=== PATIENT | male | born 2000 | race African-American/Black ===

== ENCOUNTER 2019-11-02 16:57 | Emergency (ER) | payer BC, SELFPAY ==
--- NOTE | ~2019-11-02 | XR_ITS ---
EXAMINATION: XR abdomen obstructive series DATE: 11/02/2019 17:28 INDICATION: Nausea, vomiting and influenza positive TECHNIQUE: Frontal supine and upright views of the abdomen were obtained. COMPARISON: None. FINDINGS: Moderate amount of gas scattered throughout the colon. No dilated gas-filled loops of bowel. No free intraperitoneal gas. Visualized lung bases are clear. Heart size is normal. Bones and soft tissues are unremarkable. IMPRESSION: 1. Normal bowel gas pattern. Reviewed, dictated and finalized at location A. T[facility] GRINDER
[2019-11-02 17:00] VITALS: BP 124/64; PULSE 66; RESP 16; TEMP 36.4; O2SAT 100
--- NOTE | 2019-11-02 17:12 | ED.NAVMDI ---
HPI - Nausea/Vomiting/Diarrhea General Chief complaint: Nausea/Vomiting/Diarrhea Stated complaint: N/V Time Seen by Provider: 11/02/19 17:07 Source: patient Mode of arrival: ambulatory Limitations: no limitations History of Present Illness HPI Narrative: A 19 y/o male presents to the ED, with c/o N/V since Friday (5 days ago). Pt notes ABD pain with emesis but denies diarrhea, sore throat, rhinorrhea, cough or fever. Pt has a Hx of smoking but states that he has not smoked since he began feeling sick. Pt denies being around anyone with similar Sx. MD elicited complaint: nausea and vomiting Onset (ago): day(s) (5) Associated nausea: Yes Associated abdominal pain: Yes Associated symptoms: nausea/vomiting Related Data Allergies Allergy/AdvReac Type Severity Reaction Status Date / Time amoxicillin Allergy Unknown Unknown Verified 11/02/19 17:03 clavulanic acid Allergy Unknown Unknown Verified 11/02/19 17:03 Review of Systems Review of Systems: All systems reviewed & are unremarkable except as noted in HPI and below Constitutional: Constitutional: Denies fever(s) ENT: Denies sore throat and Denies other (rhinorrhea) Respiratory: Respiratory: Denies cough Gastrointestinal: Gastrointestinal: Reports abdominal pain (with emesis), Denies diarrhea, Reports nausea and Reports vomiting PMFSH Past Medical History Medical History (Updated 11/02/19 @ 19:54 by Mike Joya DO) No significant past medical history Surgical History Surgical History (Updated 11/02/19 @ 18:18 by Ernesto NicholasRed Karaoke) No significant past surgical history Social History Social History (Updated 11/02/19 @ 18:18 by Ernesto NicholasRed Karaoke) Smoking status: Current some day smoker Gender identity (if verbalized by the patient): Male Exam Narrative: Exam Narrative: APPEARANCE: No acute distress, nontoxic, resting in bed EYES: EOMI HEENT: Normocephalic, atraumatic, oromucosa dry RESPIRATORY: No respiratory distress Clear to auscultation bilaterally with no rhonchi wheezing or rales. CARDIOVASCULAR: Regular rate and rhythm without murmurs rubs or gallops. ABDOMINAL: Soft, nontender, nondistended, no rebound or guarding MUSCULOSKELETAl: Moves all extremities. No clubbing, cyanosis or edema. NEURO: Awake and alert. Following commands, speech normal, no focal deficits SKIN:: Warm, dry. No rashes lesions or abrasions PSYCHIATRIC: Normal affect/mood, Course Course Emergency Course: Patient feeling much better at this time Discussed with patient results of workup and diagnosis. Discussed need for follow-up with primary care, proper use of medication, and reasons to return to the emergency department. Patient understands and agrees to current treatment plan Vital Signs Vital signs: Vital Signs Temperature 97.6 F 11/02/19 17:00 Pulse Rate 66 11/02/19 17:00 Respiratory Rate 16 11/02/19 17:00 Blood Pressure 124/64 11/02/19 17:00 Pulse Oximetry 100 11/02/19 17:00 Temperature 97.6 F 11/02/19 17:00 Pulse Rate 66 11/02/19 17:00 Respiratory Rate 16 11/02/19 17:00 Blood Pressure 124/64 11/02/19 17:00 Pulse Oximetry 100 11/02/19 17:00 MDM - Nausea/Vomiting/Diarrhea Lab Data Result diagrams: 11/02/19 17:05 11/02/19 17:05 Labs: Lab Results 11/02/19 11/02/19 Range/Units 17:05 17:05 WBC 4.9 (4.5-10.0) K/mm3 RBC 4.74 (4.6-6.20) M/mm3 Hgb 15.2 (14.0-18.0) g/dL Hct 43.0 (42.0-52.0) % MCV 90.7 (80-100) fl MCH 32.1 (26-34) pg MCHC 35.3 (32-36) g/dl RDW 11.1 L (11.5-14.5) % Plt Count 181 (150-375) k/mm3 MPV 10.9 H (7.4-10.4) fl Immature Gran % (Auto) 0.2 (0-0.5) % Neut % (Auto) 48.3 (45.5-73.1) % Lymph % (Auto) 42.9 (18.3-44.2) % Kern % (Auto) 7.8 (2.6-8.5) % Eos % (Auto) 0.6 (0-4.4) % Baso % (Auto) 0.2 (0.2-1.2) % Lymph # (Auto) 2.10 (0.9-3.2) K/mm3 Kern # (Auto) 0.4 (0.1-0.6) K/mm3 Eos # (Auto) 0.0
[2019-11-02 17:18] LABS: Basophils Percent Auto 0.2 % (0.2-1.2); Eosinophils Percent Auto 0.6 % (0-4.4); Hemoglobin 15.2 g/dL (14.0-18.0); Immature Granulocyte Absolute 0.01 K/mm3 (0.00-0.031); Immature Granulocyte Percent A 0.2 % (0-0.5); Lymphocytes Percent Auto 42.9 % (18.3-44.2); Mean Corpuscular HGB Conc 35.3 g/dl (32-36); Mean Corpuscular Hemoglobin 32.1 pg (26-34); Mean Corpuscular Volume 90.7 fl (80-100); Mean Platelet Volume 10.9 fl (7.4-10.4); Monocytes Absolute Auto 0.4 K/mm3 (0.1-0.6); Monocytes Percent Auto 7.8 % (2.6-8.5); Neutrophils Absolute Auto 2.4 K/mm3 (1.3-6.7); Neutrophils Percent Auto 48.3 % (45.5-73.1); Platelet Count Result 181 k/mm3 (150-375); Red Blood Count 4.74 M/mm3 (4.6-6.20); Red Cell Distribution Width 11.1 % (11.5-14.5); White Blood Count 4.9 K/mm3 (4.5-10.0)
[2019-11-02 17:29] LABS: Alanine Aminotransferase 58 U/L (4-50); Albumin Level 4.9 g/dL (3.5-5.1); Alkaline Phosphatase 73 U/L (38-126); Aspartate Amino Transferase 62 U/L (17-59); Bilirubin,Total 2.8 mg/dL (0.2-1.3); Blood Urea Nitrogen 10 mg/dL (9-20); Calcium 9.2 mg/dL (8.4-10.2); Carbon Dioxide 25 mmol/L (22-30); Chloride 96 mmol/L (98-107); Estimated CRCL calculation 118 ml/min; Estimated Glomerular Filt Rate > 60; Glucose 88 mg/dL (75-110); Lipase 66 U/L (23-300); Potassium 3.2 mmol/L (3.4-5.0); Sodium 136 mmol/L (137-145)
[2019-11-02] MEDS: SODIUM CHLORIDE 0.9% IV 1,000 ML 999 ML IV CONT ×2 (17:38→20:00)
[2019-11-02] MEDS: FAMOTIDINE 20 MG/2 ML VIAL IV PUSH (17:38)
--- NOTE | 2019-11-02 19:18 | PC.NURSE ---
Multiple IV attempts by multiple RNs for Pt. IV access. EDP notified. IV insertion was completed WNL at 1855. 22G in L Hand. IVF infusing.
[2019-11-02] MEDS: POTASSIUM CHLORIDE 20 MEQ TABLET PO (20:00)
[2019-11-02 20:51] LABS: Add Urine Microscopic? YES; Appearance Urine Clear (Clear); Bilirubin Urine Negative (Negative); Blood Urine Negative (Negative); Color Urine Yellow (Yellow); Glucose Urine UA Negative (Negative); Ketones Urine 1+ mg/dL (Negative); Leukocyte Esterase Ur Negative LEU/UL (Negative); Nitrate Urine Negative (Negative); Protein Urine Negative (Negative); RBC Urine 0-2 /hpf (0-2); Specific Grav Ur 1.008 (1.001-1.035); WBC Urine 0-3 /hpf
[2019-11-02 20:58] VITALS: BP 121/74; PULSE 45; RESP 16; O2SAT 100
== END 2019-11-02 21:05 | disposition home or self-care (01) ==
PROVIDERS: Emergency Medicine; Emergency Provider Emergency Medicine
DX: J10.2 Influenza due to other identified influenza virus with gastrointestinal manifestations (principal); R11.2 Nausea with vomiting, unspecified; F17.210 Nicotine dependence, cigarettes, uncomplicated
CPT/HCPCS: 36415; 74019; 80053; 81001; 83690; 85025; 87804; 96361; 96365; 96375; 99284; A9270; J0131; J7030

== ENCOUNTER 2022-01-16 16:34 | Emergency (ER) | payer BC, SELFPAY ==
[2022-01-16 16:44] VITALS: BP 130/70; PULSE 46; RESP 16; TEMP 36.5; O2SAT 100
--- NOTE | 2022-01-16 17:01 | ED.GENADULT ---
HPI - General Adult General Chief complaint: Extremity Injury, Upper Stated complaint: Left hand pain middle finger Time Seen by Provider: 01/16/22 17:01 Source: patient Mode of arrival: ambulatory Limitations: no limitations History of Present Illness HPI narrative: 21-year-old male presenting for complaint of left middle finger swelling around the nail. Onset 3 days. Pain is mild. No active drainage, fever. He states he does bite his nails. Denies swelling to the finger tip, active drainage, streaking or fever. Related Data Allergies Allergy/AdvReac Type Severity Reaction Status Date / Time amoxicillin Allergy Unknown Unknown Verified 01/16/22 16:37 clavulanic acid Allergy Unknown Unknown Verified 01/16/22 16:37 Review of Systems Review of Systems: CONSTITUTIONAL: Denies body aches, fever, chills, or sweats. EYES: Denies visual changes, redness, or discharge. ENT: Denies rhinorrhea, congestion, sore throat, or otalgia. CARDIOVASCULAR: Denies chest pain, palpitations, or edema. RESPIRATORY: Denies cough or dyspnea. GASTROINTESTINAL: Denies abdominal pain, nausea, vomiting, or diarrhea. GENITOURINARY: Denies dysuria or hematuria. SKIN: swelling to finger MUSCULOSKELETAL: Denies back pain, joint pain, or myalgia. NEUROLOGIC: Denies headache, numbness, tingling, or weakness. PSYCH: Denies depression or anxiety. [facility] Past Medical History Medical History (Updated 01/16/22 @ 17:18 by María Castillo APRN) No significant past medical history Surgical History Surgical History No significant past surgical history Social History Social History Smoking status: Current some day smoker Gender identity (if verbalized by the patient): Male Comments At time of signature, I have reviewed and agree with nursing past medical, surgical, social and family history unless otherwise noted. Please see nursing chart for further information. There is no relevant family history pertinent to the presenting complaint Exam Narrative: GENERAL: Well-appearing, well-nourished, and in no acute distress. HEAD: Normocephalic, atraumatic. EYES: conjunctivae clear, and EOMI. ENT: Mucous membranes moist. Oropharynx without edema, erythema or lesions. NECK: Supple. No lymphadenopathy CHEST: Clear to auscultation. No respiratory distress. HEART: Regular rate and rhythm. SKIN: Warm, dry. Paronychia to left 3rd digit, no active drainage, streaking or felon noted. NEURO: Alert and oriented x3. PSYCH: Normal mood and affect Course Course Emergency Course: Patient is aware of diagnosis, understands and agrees to treatment plan. Anticipatory guidance given. Patient agrees to follow-up as directed and is aware of reasons to seek care at the emergency department. Portions of this record may have been created with voice recognition software Level of Care: Express Care Visit Vital Signs Vital signs: Vital Signs Temperature 97.7 F 01/16/22 16:44 Pulse Rate 46 L 01/16/22 16:44 Respiratory Rate 16 01/16/22 16:44 Blood Pressure 130/70 01/16/22 16:44 Pulse Oximetry 100 01/16/22 16:44 Temperature 97.7 F 01/16/22 16:44 Pulse Rate 46 L 01/16/22 16:44 Respiratory Rate 16 01/16/22 16:44 Blood Pressure 130/70 01/16/22 16:44 Pulse Oximetry 100 01/16/22 16:44 Reviewed Procedures Abscess I/D finger: Date of Incision: 01/16/22 Side (if applicable): left Sedation/analgesia: none Technique: needle aspiration Irrigation: No Packing used?: none I&D Results: Pus and Blood Abcess I&D Additional Comments: Minimal purulent drainage and blood expelled after puncture from #18g needle inserted to area of fluctuance, finger soaked in warm soapy water. Neosporin and bandaid applied. Pt tolerated well. Medical Decision Making Differential Diagnosis Differen
== END 2022-01-16 17:23 | disposition home or self-care (01) ==
PROVIDERS: Emergency Provider Nurse Practitioner Family
DX: L03.012 Cellulitis of left finger (principal); F17.200 Nicotine dependence, unspecified, uncomplicated
CPT/HCPCS: 10160; 99213; G0463